=== PATIENT | female | born 1975 | race Caucasian/White ===

== ENCOUNTER → 2024-06-15 07:44 | Outpatient (REF) | payer BC, SELFPAY ==
[2024-06-15 08:35] LABS: % Basophils 0.4 % (0-2); % Eosinophils 3.6 % (0-6); % Immature Granulocytes 0.2 % (0-0.5); % Lymphocytes 36.8 % (20.5-51.1); % Monocytes 8.3 % (1.7-9.3); % Neutrophils 50.7 % (42.2-75.2); Absolute Eosinophils 0.2 10^3/uL (0-0.7); Absolute Monocytes 0.5 10^3/uL (0.1-0.6); Absolute Neutrophils 2.8 10^3/uL (1.4-6.5); Hemoglobin 13.9 g/dL (12.0-16.0); Mean Corp Hgb Conc. 32.3 g/dL (33.0-37.0); Mean Corpuscular Hgb 28.7 pg (27.0-31.0); Mean Corpuscular Volume 88.8 fL (81.0-99.0); Nucleated Red Blood Cells % 0 %; Platelet Count 267 10^3/uL (130-400); Red Blood Cell Count 4.84 10^6/uL (4.20-5.40); Red Cell Dist. Width 12.1 % (11.5-14.5); White Blood Cell Count 5.5 10^3/uL (4.8-10.8)
[2024-06-15 09:16] LABS: ALT (SGPT) 17 U/L (0-35); AST (SGOT) 21 U/L (14-36); Albumin 4.5 g/dl (3.5-5.0); Alkaline Phosphatase 54 U/L (38-126); Blood Urea Nitrogen 17 mg/dl (7-17); Calcium 9.8 mg/dl (8.4-10.2); Carbon Dioxide 26 mmol/L (22-30); Chloride 105 mmol/L (98-107); Glucose 100 mg/dl (70-99); HDL Cholesterol 76 mg/dl; LDL Cholesterol, Calculated 116 mg/dl; Potassium 5.8 mmol/L (3.5-5.1); Sodium 139 mmol/L (135-145); Total Bilirubin 0.7 mg/dl (0.2-1.3); Total Cholesterol 203 mg/dl (50-199); Total Protein 6.8 g/dl (6.3-8.2); Triglyceride 55 mg/dl (10-149); Very Low Density Lipoprotein 11 mg/dl (0-30); eGFR > 60.00
[2024-06-15 09:22] LABS: Vitamin D, 25-OH*** 47.6 ng/mL (30-80)
[2024-06-15 09:35] LABS: TSH Reflex To Free T4 0.87 uIU/ml (0.47-4.68)
[2024-06-15 10:01] LABS: Vitamin B12 622 pg/ml (239-931)
[2024-06-17 18:36] LABS: Hepatitis B Surface Antigen Negative (Negative)
[2024-06-17 18:54] LABS: Hepatitis B Surface Antibody Negative
== END ==
LOC: REG 07:44
PROVIDERS: ATTENDING PHYSICIAN Family Medicine
DX: Z00.00 Encounter for general adult medical examination without abnormal findings (principal); E55.9 Vitamin D deficiency, unspecified; E53.8 Deficiency of other specified B group vitamins; Z11.59 Encounter for screening for other viral diseases
CPT/HCPCS: 36415; 80053; 80061; 82306; 82607; 84443; 85025; 86706; 87340

== ENCOUNTER → 2024-07-01 08:30 | Outpatient (REF) | payer BC, SELFPAY | LOC: WDC 08:30 | PROVIDERS: ATTENDING PHYSICIAN Family Medicine | DX: Z12.31 Encounter for screening mammogram for malignant neoplasm of breast (principal) | CPT/HCPCS: 77063; 77067 ==

== ENCOUNTER → 2024-10-13 11:37 | Emergency (ER) | payer BC, SELFPAY ==
[2024-10-13 11:39] VITALS: BP 128/76
--- NOTE | 2024-10-13 11:53 | ED.SKININJ ---
HPI-Injury
General
Chief Complaint: Skin Surface Trauma
Source: patient
Exam Limitations: none
Time Seen by Provider: 10/13/24 11:43
Nursing documentation reviewed up to this point in time: agreed with
History of Present Illness-Injury
Initial Injury comments:
49-year-old female with a past medical history within the past hour at home placed the tip of her left index finger with a knife. She has had a tetanus vaccine within the past 5 years.
Past History
Past History
ED Past Medical History: None
ED Past Surgical History: None
Social History
Tobacco: Non-smoker
Alcohol: Occasional
Personal:
Living: with family
Employment: Employed
Review of Systems
Review of Systems
Allergies reviewed?: Yes
All Other Systems: ROS reviewed and negative except as documented in HPI and ROS
Skin: Reports other (Cut left index finger)
Skin Exam
Laceration
left index finger tip:
Length in cm: 1
Orientation: vertical (vertical laceration radial aspect distal finger including 2 mm sliver of nail lacerated. )
Type of Laceration: simple
Any active bleeding?: no active bleeding
Distal skin color and temperature: normal-warm & good color
Normal distal neurovascular exam: Yes
Range of motion: full
Phy Exam
Physical Exam
Physical Exam:
PHYSICAL EXAMINATION:
General: no apparent distress, not acutely ill
Neuro: alert and oriented.
Psychiatric: well kept. interactive and cooperative
Musculoskeletal: Moves with ease
Skin: Warm, pink.
Course
Vital Signs
Initial and Last Documented VS:
Initial Vital Signs
Temp Pulse Resp BP Pulse Ox
98.3 F 83 20 128/76 98
10/13/24 11:39 10/13/24 11:39 10/13/24 11:39 10/13/24 11:39 10/13/24 11:39
Last Documented Vital Signs
Temp Pulse Resp BP Pulse Ox
98.3 F 83 20 128/76 98
10/13/24 11:39 10/13/24 11:39 10/13/24 11:39 10/13/24 11:39 10/13/24 11:57
MDM/Problems Addressed
MDM/Problems Addressed:
49-year-old female with a past medical history within the past hour at home placed the tip of her left index finger with a knife. She has had a tetanus vaccine within the past 5 years.
After gluing the wound, Band-Aid and aluminum finger splint applied
*Pulse Oximetry
SaO2: 98
Oxygen Mode of Delivery: Room air
Patient hypoxic: not evaluated
*Critical Care Note
Total Time (30-74mins, 75-104mins- exclusive of procedures): Not Applicable
ED Attending Note
-
Portions of this chart may have been created with voice recognition software.� Occasional wrong word or��sound alike� substitutions may have occurred due to the inherent limitations of voice recognition software.
Discharge Plan
Departure
Patient Disposition: Home (Routine Discharge)
Date of Disposition: 10/13/24
Time of Disposition: 11:51
Patient with high blood pressure during this ER visit?: No
Condition: Good
Discharge Problem:
Laceration of left index finger
Instructions: Laceration Repair With Glue (DC)
Referrals:
Jeff Vasquez MD [Family Provider, Family Practice] - As needed
Activity Restrictions/Additional Instructions:
As we discussed, it takes about 2 weeks for this area to heal. It will take longer for the nail to grow out.
For the next 10 days, when you shower or bathe, keep the Band-Aid on, afterwards gently remove it and allow the area to dry, replace clean Band-Aid and use the aluminum fingertip splint as needed for protection.
Keep a Band-Aid on the fingertip to protect the nail as it grows out because the sliver that was lacerated could snagged on something and be pulled off.
Interventions
Interventions:
*Risk Screen - Suicide Last Done: 10/13/24 11:58
*General Assessment Last Done: 10/13/24 11:39
*Neglect/Abuse Screening Last Done: 10/13/24 11:58
*ED- Fall Risk Assessment Last Done: 10/13/24 11:58
*ED COVID-19 Vaccine History Last Done: 10/13/24 11:58
*Nursing Disposition Last Done: 10/13/24 12:01
ED-Skin Assessment Last Done: 10/13/24 11:58
Discharge Date and Time
Print Language: MALDIVIAN
== END | disposition home or self-care (01) ==
LOC: EMR 11:37
PROVIDERS: EMERGENCY PHYSICIAN Emergency Medicine; FAMILY PHYSICIAN Family Medicine
DX: S61.211A Laceration without foreign body of left index finger without damage to nail, initial encounter (principal); X58.XXXA Exposure to other specified factors, initial encounter
CPT/HCPCS: 99282; 12001